=== PATIENT | female | born 1950 | race Caucasian/White ===

== ENCOUNTER 2019-08-06 17:57 | Emergency (ER) | payer OTHER, BC ==
[~2019-08-06] VITALS: Ht 160 cm; Wt 76.2 kg
[2019-08-06 17:58] VITALS: BP 123/51
[2019-08-06] MEDS ORDERED: ONDANSETRON 4 MG/2 ML VIAL IVP ONE (18:15)
[2019-08-06] MEDS ORDERED: MORPHINE SULFATE 4 MG/ML SYR IVP ONE (18:15)
[2019-08-06] MEDS ORDERED: NACL 0.9% 1,000 ML IV SCH (18:15)
--- NOTE | 2019-08-06 18:19 | NUR ---
UNABLE TO OBTAIN BLOOD PRESSURE AT THIS TIME. PT IS RESTLESS, THRASHING IN GURNEY BED, WILL NOT STOP MOVING, MOANING AND GROANING IN BED. DR. BYRD AWARE.
--- NOTE | 2019-08-06 18:20 | NUR ---
PT BIBA FROM HOME WITH C/O GENERALIZED ABD PAIN FOR THE PAST X3 HOURS. PATIENT STATES SUDDEN ONSET. DENIES N/V/D. PT IS VERY ANXIOUS, RESTLESS, MOANING AND NOT ABLE TO SIT STILL. PT STATES "I HAVE TO MOVE TO STOP THE PAIN." PATIENT STATES "I KNOW IT'S WEIRD BUT I HAVE TO MOVE."
--- NOTE | 2019-08-06 18:34 | NUR ---
PT CONTINUES TO THRAST, UNABLE TO STAY STILL DURING BLOOD PRESSURE CHECK OR LAB DRAWS. PT THRASHING AND RESTLESS IN [facility]. FRIEND AT BEDSIDE. PT SITTING WITH LEGS CROSSED, MOANING. PT ADVISED SHE WAS GIVEN PAIN MEDICATION THROUGH HER IV AND SHE REPLIED "IT TOOK THE EDGE OFF."
[2019-08-06 18:51] LABS: BASOPHILS % (AUTO) 0.3 % (0.0-2.0); EOSINOPHILS # (AUTO) 0.1 K/uL (0-0.4); EOSINOPHILS % (AUTO) 0.7 % (0.0-4.0); HEMOGLOBIN 14.8 g/dL (12.0-16.0); LYMPHOCYTES # (AUTO) 1.6 K/uL (2.5-16.5); LYMPHOCYTES % (AUTO) 11.5 % (20.5-51.1); MEAN CORPUSCULAR HEMOGLOBIN 31 pg (27-31); MEAN CORPUSCULAR HGB CONC 33 g/dL (33-37); MONOCYTES # (AUTO) 0.9 K/uL (0.8-1.0); MONOCYTES % (AUTO) 6.6 % (1.7-9.3); NEUTROPHILS # (AUTO) 11.3 K/uL (1.8-7.7); NEUTROPHILS % (AUTO) 80.9 % (42.2-75.2); PLATELET COUNT (AUTO) 359 K/uL (140-450); RED BLOOD CELL COUNT(AUTO) 4.74 MIL/uL (4.20-5.40); RED CELL DISTRIBUTION WIDTH 13.4 % (11.6-13.7); WHITE BLOOD COUNT (AUTO) 13.9 K/uL (4.8-10.8)
[2019-08-06] MEDS ORDERED: KETOROLAC 30 MG/ML VIAL IVP ONE (19:10)
[2019-08-06 19:29] LABS: CARBON DIOXIDE 29.5 mmol/L (21-32); CHLORIDE 104 mmol/L (98-107); CREATININE 1.3 mg/dL (0.6-1.3); GLUCOSE 117 mg/dL (74-106); POTASSIUM 4.5 mmol/L (3.5-5.1); SODIUM SERUM 143 mmol/L (136-145); UREA NITROGEN, BLOOD 30 mg/dL (7-18)
[2019-08-06 19:38] LABS: ALBUMIN 3.6 g/dL (3.4-5.0); AMYLASE 53 U/L (25-115); ASPARTATE AMINOTRANSFERASE 15 U/L (15-37); LIPASE 89 U/L (73-393); TOTAL BILIRUBIN 0.3 mg/dL (0.0-1.0)
--- NOTE | 2019-08-06 20:22 | NUR ---
PT AMB TO BATHROOM WITH STEADY GAIT
[2019-08-06 20:55] LABS: APPEARANCE,URINE CLEAR (CLEAR); BILIRUBIN,URINE NEGATIVE (NEGATIVE); BLOOD, URINE TRACE-I (NEGATIVE); COLOR,URINE YELLOW (YELLOW); LEUKOCYTE ESTERASE ,URINE NEGATIVE (NEGATIVE); NITRITE, URINE NEGATIVE (NEGATIVE); PH,URINE 5.5 (5.0-9.0); UGLUCOSE 3+ (NEGATIVE)
[2019-08-06 21:10] LABS: HYALINE CASTS, URINE 0-10 /LPF (None Seen); RBC,URINE 0-5 /HPF (0-5); WBC,URINE 0-5 /HPF (0-5)
[2019-08-06 21:30] LABS: BARBITURATE, URINE NEGATIVE ng/ml (NEG <=200); BENZODIAZEPINE, URINE NEGATIVE ng/mL (NEG <=200); CANNABINOID, URINE POSITIVE ng/mL (NEG <=50); COCAINE, URINE POSITIVE ng/mL (NEG <=300); PHENCYCLIDINE SCREEN,URINE NEGATIVE ng/mL (NEG <=25)
[2019-08-06 21:31] LABS: OPIATE, URINE POSITIVE ng/mL (NEG <=2000)
--- NOTE | 2019-08-06 21:48 | NUR ---
Dr. Thurston examining patient.
[2019-08-06 22:02] VITALS: BP 108/83
--- NOTE | 2019-08-10 08:26 | NUR ---
Late entry. Confirmed with RN that 0.9 NS IV completed at 1930
== END 2019-08-06 22:02 | disposition home or self-care (01) ==
LOC: MED 17:57
DX: R10.9 Unspecified abdominal pain (principal); M54.5 Low back pain; F15.10 Other stimulant abuse, uncomplicated; J44.9 Chronic obstructive pulmonary disease, unspecified
CPT/HCPCS: 36415; 80053; 80305; 81001; 82150; 83690; 85025; 96374; 96375; 99283; J1885; J2270; J2405; J7030